=== PATIENT | male | born 1975 | race Caucasian/White ===

== ENCOUNTER 2019-07-14 07:42 | Observation (INO) ==
--- NOTE | 2019-07-14 08:01 | Emergency Department Note ---
ED Disposition Clinical Impression: Alcohol abuse, Depressive disorder Alcohol intoxication Qualifiers: Complication of substance-induced condition: uncomplicated Qualified Code(s): F10.920 - Alcohol use, unspecified with intoxication, uncomplicated Disposition: Admitted as Observation Condition on Discharge: Fair - Critical Care Critical Care Time: No Attestation: On 07/14/19, the high probability of a clinically significant, sudden or life threatening deterioration of the following system(s) required my full and direct attention, intervention and personal management. The time I documented below is in addition to time spent performing reported procedures but includes the following listed in this critical care notation. Medical Decision Making - Avery Inquiry Pt receiving controlled substance: No Vital Signs: 07/14/19 07:42 07/14/19 07:58 07/14/19 08:05 Temperature 97.8 F Temperature Source Oral Pulse Rate Pulse Rate [Apical] 105 H Pulse Rate [Left Radial] 104 H 104 H Respiratory Rate 16 Blood Pressure Blood Pressure [Left Arm] 98/64 L 99/70 L Blood Pressure [Right Arm] 107/66 L Blood Pressure Mean [Left Arm] 75 79 Blood Pressure Mean [Right Arm] 79 Blood Pressure Source Blood Pressure Source [Left Arm] Automatic Cuff Automatic Cuff Blood Pressure Source [Right Arm] Automatic Cuff Blood Pressure Position Blood Pressure Position [Left Arm] Sitting Sitting Blood Pressure Position [Right Arm] Sitting 02 Sat by Pulse Oximetry 96 95 96 Oxygen Delivery Method Room Air Room Air Room Air 07/14/19 08:42 07/14/19 08:58 07/14/19 13:13 Temperature Temperature Source Pulse Rate Pulse Rate [Apical] Pulse Rate [Left Radial] 86 98 H 80 Respiratory Rate 16 18 Blood Pressure Blood Pressure [Left Arm] 104/66 L 90/60 L 103/67 L Blood Pressure [Right Arm] Blood Pressure Mean [Left Arm] 78 70 79 Blood Pressure Mean [Right Arm] Blood Pressure Source Blood Pressure Source [Left Arm] Automatic Cuff Automatic Cuff Automatic Cuff Blood Pressure Source [Right Arm] Blood Pressure Position Blood Pressure Position [Left Arm] Sitting Sitting Sitting Blood Pressure Position [Right Arm] 02 Sat by Pulse Oximetry 98 97 94 L Oxygen Delivery Method Room Air Room Air Room Air 07/14/19 14:34 07/14/19 15:30 07/14/19 16:35 Temperature Temperature Source Pulse Rate Pulse Rate [Apical] 83 Pulse Rate [Left Radial] 75 77 Respiratory Rate 20 17 16 Blood Pressure Blood Pressure [Left Arm] 92/54 L 108/72 L 103/60 L Blood Pressure [Right Arm] Blood Pressure Mean [Left Arm] 66 84 74 Blood Pressure Mean [Right Arm] Blood Pressure Source Blood Pressure Source [Left Arm] Automatic Cuff Automatic Cuff Automatic Cuff Blood Pressure Source [Right Arm] Blood Pressure Position Blood Pressure Position [Left Arm] Right Lateral Supine Supine Blood Pressure Position [Right Arm] 02 Sat by Pulse Oximetry 98 95 96 Oxygen Delivery Method Room Air Room Air Room Air 07/14/19 17:03 07/14/19 17:30 07/14/19 18:07 Temperature Temperature Source Pulse Rate Pulse Rate [Apical] 99 H Pulse Rate [Left Radial] 89 75 71 Respiratory Rate 18 16 16 Blood Pressure Blood Pressure [Left Arm] 103/60 L 117/81 117/81 Blood Pressure [Right Arm] Blood Pressure Mean [Left Arm] 74 93 93 Blood Pressure Mean [Right Arm] Blood Pressure Source Blood Pressure Source [Left Arm] Automatic Cuff Automatic Cuff Automatic Cuff Blood Pressure Source [Right Arm] Blood Pressure Position Blood Pressure Position [Left Arm] Sitting Sitting Supine Blood Pressure Position [Right Arm] 02 Sat by Pulse Oximetry 97 99 99 Oxygen Delivery Method Room Air Room Air Room Air 07/14/19 18:30 07/14/19 19:00 07/14/19 19:21 Temperature 98.5 F Temperature Source Oral Pulse Rate 64 Pulse Rate [Apical] Pulse Rate [Left Radial] 69 74 Respiratory Rate 16 16 18 Blood Pressure 126/89 Blood Pressure [Left Arm] 126/89 126/89 Blood Pressure [Right Arm] Blood Pressure Mean [Left Arm] 101 101 Blood Pressure Mean [Right Arm] Blood Pressure Source Automatic Cuff Blood Pressure Source [Left Arm] Automatic Cuff Automatic Cuff Blood Pressure Source [Right Arm] Blood Pressure Position Sitting Blood Pressure Position [Left Arm] Supine Sitting Blood Pressure Position [Right Arm] 02 Sat by Pulse Oximetry 99 100 Oxygen Delivery Method Room Air Room Air Room Air - Lab Data Lab Results 07/14/19 07:40: WBC 7.2, RBC 5.12, Hgb 14.3, Hct 44.9, MCV 87.6, MCH 28.0, MCHC 31.9, RDW 16.2, Plt Count 265, MPV 7.3 L, Neut % (Auto) 24.9 L, Lymph % (Auto) 67.7 H, [place] % (Auto) 3.7, Eos % (Auto) 2.9, Baso % (Auto) 0.7, Neut # (Auto) 1. 8, Lymph # (Auto) 4.9 H, [place] # (Auto) 0.3, Eos # (Auto) 0.2, Baso # (Auto) 0.1, Total Counted 100, Neutrophils % (Manual) 26 L, Lymphocytes % (Manual) 72 H, Monocytes % (Manual) 2, Platelet Estimate Normal 07/14/19 07:40: Sodium 143, Potassium 3.6, Chloride 102, Carbon Dioxide 29, [place] 15.6 H, BUN 10, Creatinine 0.66 L, Estimated Creat Clear 181, Estimated GFR 131, Est GFR ( Amer) 158, Glucose 195 H, Calcium 8.6, Total Bilirubin 0.2, AST 85 H, ALT 96 H, Alkaline Phosphatase 85, Total Protein 8.0, Albumin 4.0, Globulin 4.0 H, Albumin/Globulin Ratio 1.0 L, Salicylates 3.3, Acetaminophen 0 L 07/14/19 07:40: Plasma/Serum Alcohol 410 H* 07/14/19 07:40: Lipase 110 07/14/19 08:08: POC Glucose 216 H 07/14/19 08:40: Urine Color Yellow, Urine Appearance Clear, Urine pH 6.0, Ur Specific Christine 1.015, Urine Protein Negative, Urine Glucose (UA) Trace, Urine Ketones Negative, Urine Blood Negative, Urine Nitrate Negative, Urine Bilirubin Negative, Urine Urobilinogen 0.2, Ur Leukocyte Esterase Negative, Urine RBC Occasional, Urine WBC 3-5, Ur Squamous Epith Cells Occasional, Urine Bacteria Trace 07/14/19 08:40: Urine Opiates Screen Negative, Urine Methadone Screen Negative, Ur Barbituates Screen Negative, Ur Phencyclidine Scrn Negative, Ur Amphetamines Screen Negative, U Benzodiazepines Scrn Positive H, Urine Cocaine Screen Negative, U Marijuana (THC) Screen Negative 07/14/19 13:08: Plasma/Serum Alcohol 254 H 07/14/19 16:32: POC Glucose 126 H 07/14/19 17:52: Plasma/Serum Alcohol 142 H 07/14/19 17:57: Phosphorus 4.2, Magnesium 2.3 H Result diagrams: 07/14/19 07:40 07/14/19 07:40 Orders (Tests/Meds): ED MEDICATIONS Generic Name Dose Route Start Last Admin Trade Name Usha PRN Reason Stop Dose Admin Folic Acid 1 mg 07/15/19 09:00 Folic Acid 1mg Tablet PO 08/14/19 08:59 DAILY SAM Haloperidol 5 mg 07/14/19 19:48 Haldol 5mg Tablet PO 08/13/19 19:47 Q1HP PRN Agitation Sodium Chloride 1,000 mls @ 50 mls/hr 07/14/19 19:48 07/14/19 19:54 Sod Chlor 0.9% 1000ml Bag IV 08/13/19 19:47 50 mls/hr .Q20H SAM Administration Insulin Human Lispro 0 unit 07/14/19 21:00 Humalog 100 Units/Ml 3ml Vial ([facility]) SQ 08/13/19 20:59 ACHS SAM Protocol Lorazepam 1 mg 07/14/19 20:16 Ativan 2mg/Ml Vial IV 08/13/19 20:15 Q2HP PRN AGITATION Multivitamins 1 each 07/15/19 17:00 Multi-Vitamin Plain PO 08/14/19 16:59 1700 SAM Oxazepam 30 mg 07/14/19 20:00 Serax 15mg Capsule PO 07/16/19 14:01 Q6H SAM Sodium Chloride 10 ml 07/14/19 19:48 Saline Flush 10ml Syringe IV 08/13/19 09:22 NEEDED PRN Maintain IV Site Sodium Chloride 8 ml 07/14/19 19:48 Sodium Chloride 0.9% 10ml Vial IV 08/13/19 09:22 NEEDED PRN dilute pepcid Thiamine HCl 100 mg 07/15/19 09:00 Vitamin B-1 100mg Tablet PO 07/17/19 09:01 DAILY SAM Discontinued Medications Generic Name Dose Route Start Last Admin Trade Name Usha PRN Reason Stop Dose Admin Belladonna Alkaloids 60 ml 07/14/19 09:23 07/14/19 09:26 Gi Cocktail 60ml Udc PO 07/14/19 09:24 60 ml ONCE ONE Administration Famotidine 20 mg 07/14/19 09:23 07/14/19 09:26 Pepcid 20mg/2ml Vial IV 07/14/19 09:24 20 mg ONCE ONE Administration Folic Acid 1 mg 07/14/19 09:24 07/14/19 09:46 Folic Acid 1mg Tablet PO 07/14/19 09:25 1 mg ONCE ONE Administration Multivitamins 10 ml/ Thiamine 1,015 mls @ 150 mls/hr 07/14/19 09:30 07/14/19 09:46 HCl 100 mg/ Magnesium Sulfate IV 07/14/19 16:15 150 mls/hr 2 gm/ Lactated Ringer's .Q6H46M SAM Administration Ioversol 75 ml 07/14/19 10:10 07/14/19 10:11 Rad-Optiray 350 100ml Vial IV 07/14/19 10:11 75 ml ONCE ONE Administration Protocol Ketorolac Tromethamine 30 mg 07/14/19 08:55 07/14/19 09:06 Toradol 30mg/Ml Vial IV 07/14/19 08:56 30 mg ONCE ONE Administration Sodium Chloride 1,000 ml 07/14/19 08:09 07/14/19 08:15 Sod Chlor 0.9% 1000ml Bag IV 07/14/19 08:10 1,000 ml BOLUS ONE Administration Sodium Chloride 10 ml 07/14/19 09:23 Saline Flush 10ml Syringe IV 08/13/19 09:22 NEEDED PRN Maintain IV Site Sodium Chloride 8 ml 07/14/19 09:23 Sodium Chloride 0.9% 10ml Vial IV 08/13/19 09:22 NEEDED PRN dilute pepcid Sodium Chloride 10 ml 07/14/19 10:10 07/14/19 10:11 Rad-Saline Flush 10ml Syringe IV 07/14/19 10:11 10 ml ONCE ONE Administration ORDERS Category Date Time Status Activated Partial Thrombo Time Routine Lab 07/14/19 17:40 Received Complete Blood Count Auto Diff AMLAB Lab 07/15/19 06:00 Ordered Prothrombin Time INR Routine Lab 07/14/19 17:40 Received - CT Data CT Scan: Abdomen, Pelvis Time Received: 10:[address] Reviewed: Yes: I have viewed the radiologist's interpretation Findings Narrative: FINDINGS: Lung bases are clear. Small area of decreased attenuation is present in the left hepatic lobe at the fissure for the ligamentum teres and may be due to focal fatty infiltration. There is mild prominence of the intrahepatic biliary radicles. The gallbladder is not distended. There is mild generalized motion artifact which does decrease sensitivity of the exam. The spleen and adrenal glands are unremarkable. There is diffuse coarse calcification involving the body and head of the pancreas consistent with chronic pancreatitis. The common bile duct is slightly prominent at 12 mm. A definite common duct stone is not identified however, there is a moderate degree of motion which obscures fine detail and there are multiple calcifications in the head of the pancreas which could mimic or obscure a common duct stone. If there is clinical suspicion for biliary obstruction then, MRCP may be of further value if the patient can't adequately breath hold. The kidneys show no acute finding. No intestinal obstruction or free air is evident. There are multiple unopacified bowel loops in the abdomen and pelvis which could obscure or mimic pathology. Prostate is slightly enlarged at 5 cm. There is a moderate amount of retained colonic feces. No evidence of diverticulitis or appendicitis. No intestinal obstruction or free air. IMPRESSION: 1. Chronic pancreatitis 2. Prominence of the intra and extrahepatic biliary tree. No obvious common duct stone however, there are limitations to evaluation of the common bile duct. MRCP may be of further value if clinically warranted 3. Constipation Dictated by: Filiberto Gutierrez MD 07/14/2019 10:41 Electronically signed by Filiberto Gutierrez MD in [place] 07/14/2019 10:41 - ECG Data Tracing #1 EKG interpreted by Maximus Hu MD: Rhythm: sinus tachycardia Rate: 108 [place]: normal Ectopy: none Conduction: normal ST Segment Changes: none T Wave Changes: none Q Waves: none No evidence of acute ischemia or injury Baseline artifact present, but I consider the EKG adequate for accurate interpretation. Medical Decision Narrative: 8:55 AM: Nurse reports patient states he suffers from chronic pancreatitis. States he normally just drinks a shot of vodka to take care of it, but if he does not get something for it soon, he will start pulling stuff out. Toradol ordered. Lipase ordered. 9:10 AM: Patient states Toradol did not help, asked for something else for pain. I declined to give him any opiates. Patient informed that he had said that he took 10 Percocets about 5 hours ago. He then states that he did not take them. 9:25 AM: Sports Medicine Coordinator states patient is requesting Pepcid or something else for his stomach. Pepcid and GI cocktail ordered. Nurse reports that when she administered these, patient states that "that doctor's out of his fucking mind. Pancreatitis is an inflammation of the pancreas." 9:50 AM: Spoke with patient about test results. Advised him that acetaminophen and opiates were negative. He also does not have pupillary constriction or any other signs that would indicate opiate ingestion. He now states that he does not think that he took any Percocet. He states "I do not know what I did last night". Patient complains of severe epigastric pain. CT scan ordered. [facility] was contacted and they report that for the patient to be sent there on a 72-hour hold, alcohol level had to be below 80 mg/dL. Patient was observed in the emergency department, serial alcohol levels have been followed. Meg Caputo was contacted for psych evaluation. 6:13 PM: Meg Caputo did not evaluate the patient in the ED. The patient is awake and alert and appears sober. Speech is clear. He has eaten a meal. He does not remember presenting here this morning. When presented with the fact that he was reporting suicidal ideation he now states that he does not think he is suicidal, he says he just had a bad day. Has some family problems. Admits to being a daily drinker. When asked whether he has been through detox before, he says that he just got out of detox yesterday from [facility]. I reviewed the records from [facility]. He was admitted there from 07/09/2019 through 07/12/2019. He presented with bilateral loss of vision and alcohol intoxication. He had an extensive evaluation from ophthalmology and neurology. It was felt that his bilateral vision loss was possibly due to drinking homemade moonshine. He was treated for sever alcohol withdrawal. discharged with referrals for f/u. 7:00 PM: The patient says that he does not feel suicidal and would like to go home. He says he does not think he is at risk of DTs because he only drank heavily one day after being detoxed. However, he has no way to get home. He has no shoes. He has no friends who can pick them up. Our nursing staff attempted to find him a ride home without success. 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 Patient says that he prefers to stay here overnight. Wants to see Meg Harshal tomorrow, if possible. I am concerned that he may go into alcohol withdrawal. I discussed the case with Dr. Tong who agrees to admit him overnight observation on alcohol withdrawal protocol. General Adult HPI - General Stated complaint: suicidal ideation Time Seen by Provider: 07/14/19 08:01 - History of Present Illness HPI narrative: Not a cooperative historian. Brought in by ambulance. States he does not know who called 911, says "I just took a bunch of pills and drank some booze and the next thing I know I am here". Report is that he actually called 911. When I mention this to him he says "that is funny". He says that he took Percocet, p erhaps 10, ate mushrooms, snorted a half of a Suboxone and drank a few shots of alcohol at about 4 AM. He says he wants to and was trying to kill himself. Denies previous suicide attempts or psychiatric admissions. Does not currently see a psychiatrist or therapist. States he "just does not want to be here anymore". States "my job here is done". - Related Data Home Medications Medication Instructions Recorded Confirmed Insulin Glargine,Hum.[email or web address].anlog 22 unit SQ DAILY 07/08/19 07/14/19 [Adama Betancourt [id number]] Allergies Allergy/AdvReac Type Severity Reaction Status Date / Time No Known Allergies Allergy Verified 07/08/19 00:25 [facility] History - Hepatitis A Screen Attestation statement:: This patient has been screened for Hepatitis A risk factors. I have reviewed the patient's past medical history: Yes - Social History Smoking Status: Current every day smoker Tobacco Type: cigarettes # Packs/Day (cigarettes): 1 Alcohol Intake: current Alcohol Intake Frequency:: holidays/special occasions only Occupational Status: employed ROS Obtained: Yes unobtainable due to mental status Physical Exam - General General appearance: alert, in no apparent distress Comment: talks with eyes closed, but speech clear. - Head Head exam: atraumatic, normocephalic - Eye Eye exam: Present: normal appearance, PERRL, EOMI, other (pupils 5 mm) - ENT ENT exam: Present: normal exam, mucous membranes moist - Neck Neck exam: Present: normal inspection, trachea midline - Chest Chest inspection: Present: normal inspection, symmetric chest wall rise - Respiratory Respiratory exam: Present: normal lung sounds bilaterally. Absent: respiratory distress - Cardiovascular Cardiovascular exam: Present: regular rate, normal rhythm, normal heart sounds - Abdominal Exam Abdominal exam: Present: soft, normal bowel sounds. Absent: distention, tenderness - Extremities Exam Extremities exam: Present: normal inspection, full ROM. Absent: tenderness - Neurological Exam Neurological exam: Present: alert, oriented X3, CN II-XII intact. Absent: motor sensory deficit - Psychiatric Psychiatric exam: Present: flat affect - Skin Skin exam: Present: warm, dry
[2019-07-14 08:24] LABS: Basophils # 0.1 K/mm3 (0-0.2); Basophils % 0.7 % (0.1-2.0); Eosinophils # 0.2 K/mm3 (0.0-0.4); Eosinophils % 2.9 % (0.1-12.0); Hematocrit 44.9 % (42.0-52.0); Hemoglobin 14.3 g/dL (14.1-18.0); Lymphocytes # 4.9 K/mm3 (0.7-4.5); Lymphocytes % 67.7 % (10-50); Mean Corpuscular HGB Conc 31.9 g/dL (31.8-35.4); Mean Corpuscular Volume 87.6 fl (80-94); Mean Platelet Volume 7.3 fl (7.4-10.4); Monocytes # 0.3 K/mm3 (0.1-1.0); Monocytes % 3.7 % (1.7-9.3); Neutrophils # 1.8 K/mm3 (1.8-7.8); Neutrophils % 24.9 % (37.0-80.0); Platelet Count 265 K/mm3 (142-424); Red Blood Count 5.12 M/mm3 (4.60-6.20); Red Cell Distribution Width 16.2 % (11.5-17.5); White Blood Count 7.2 K/mm3 (4.8-10.8)
[2019-07-14 08:32] LABS: Anion Gap 15.6 mEq/L (5-15); Bilirubin,Total 0.2 mg/dL (0.2-1.0); Calcium 8.6 mg/dL (8.5-10.1); Salicylate 3.3 mg/dL (2.8-20.0)
[2019-07-14 08:44] LABS: Microscopic, Urine URINE MICROSCOPIC (MICROSCOPIC)
[2019-07-14 08:47] LABS: Appearance,Urine CLEAR (Clear); Bilirubin,Urine Negative (Negative); Blood, Urine Negative (Negative); Color,Urine YELLOW (Yellow); Glucose,Urine (UA) TRACE (Negative); Ketones,Urine Negative (Negative); Leukocyte Esterase,Urine Negative (Negative); Protein,Urine Negative (Negative); Specific Gravity, Urine 1.015 (1.005-1.030); Urobilinogen,Urine 0.2 EU/dl (0.2)
[2019-07-14 08:54] LABS: Amphetamine/Metha Screen,Urine Negative ng/mL (<1000); Barbiturates Screen,Urine Negative ng/mL (<200); Benzodiazepines Screen,Urine Positive ng/mL (<200); Cannabinoid Screen,Urine Negative ng/mL (<50); Cocaine Screen,Urine Negative ng/mL (<300); Methadone Screen,Urine Negative ng/mL (<300); Opiate Screen,Urine Negative ng/mL (<300); Phencyclidine Screen,Urine Negative ng/mL (<25)
[2019-07-14 08:55] LABS: Lymphocytes % 72 % (10-50); Monocytes % 2 % (2-9); Neutrophils % 26 % (42-76); Total Cells Counted 100
[2019-07-14 09:15] LABS: Bacteria,Urine Trace /lpf; RBC,Urine Occasional #/hpf (0-3); Squamous Epithelial Cell,Urine Occasional #/hpf (0-5)
[2019-07-14 20:07] LABS: Phosphorous 4.2 mg/dL (2.4-4.9)
[2019-07-14 20:44] LABS: INR 0.97 (0.9-1.1); Prothrombin Time 10.1 seconds (9.4-11.8)
[2019-07-15 06:22] LABS: Basophils % 0.5 % (0.1-2.0); Eosinophils # 0.1 K/mm3 (0.0-0.4); Eosinophils % 1.1 % (0.1-12.0); Hematocrit 40.5 % (42.0-52.0); Hemoglobin 12.9 g/dL (14.1-18.0); Lymphocytes # 2.9 K/mm3 (0.7-4.5); Lymphocytes % 42.8 % (10-50); Mean Corpuscular HGB Conc 31.9 g/dL (31.8-35.4); Mean Corpuscular Volume 88.4 fl (80-94); Mean Platelet Volume 7.4 fl (7.4-10.4); Monocytes # 0.4 K/mm3 (0.1-1.0); Monocytes % 5.4 % (1.7-9.3); Neutrophils # 3.4 K/mm3 (1.8-7.8); Neutrophils % 50.3 % (37.0-80.0); Platelet Count 213 K/mm3 (142-424); Red Blood Count 4.58 M/mm3 (4.60-6.20); Red Cell Distribution Width 15.8 % (11.5-17.5); White Blood Count 6.7 K/mm3 (4.8-10.8)
--- NOTE | 2019-07-15 07:34 | Pharmacy Consult Notes ---
[facility] Pharmacy VTE Monitoring - Patient Demographics Admission date: 07/15/19 Report Date: 07/15/19 Time: 07:34 Allergies/Adverse Reactions: Patient Allergies No Known Allergies Allergy (Verified 07/14/19 20:37) Height: 1.88 m Weight: 87.77 kg Patient Problems: Current Active Problems Alcohol intoxication (Acute) Alcohol abuse (Acute) Depressive disorder (Acute) - VTE Risk Labs: VTE Related Lab Results Hgb 12.9 g/dL (14.1-18.0) L 07/15/19 05:40 Hct 40.5 % (42.0-52.0) L 07/15/19 05:40 Plt Count 213 K/mm3 (142-424) 07/15/19 05:40 PT 10.1 seconds (9.4-11.8) 07/14/19 17:40 INR 0.97 (0.9-1.1) 07/14/19 17:40 APTT 26.8 seconds (23.6-34.0) 07/14/19 17:40 BUN 10 mg/dL (7-18) 07/14/19 07:40 Creatinine 0.66 mg/dL (0.70-1.30) L 07/14/19 07:40 Estimated Creat Clear 181 mL/min (50-200) 07/14/19 07:40 Was VTE Risk Assessment Performed: Yes VTE Score: 1 VTE Risk Level: Very Low Risk Clinical Trial Participant: No - Prophylaxis VTE Prophylaxis Ordered?: Yes Types of VTE Prophylaxis: TEDS Knee High
--- NOTE | 2019-07-15 11:07 | H&P/Discharge Summary ---
General - General Admission date:: 07/14/19 Discharge date: 07/15/19 *Admission Date: 07/15/19 *Chief complaint: alcohol intoxication *History of present illness: Mr. Albright is a 44-year-old male with a 20-year history of alcohol and substance abuse. He states he has been to rehab many times but always relapses. He was just admitted at for 3 days over this past weekend for alcohol withdrawal symptoms. He states he was released from on 07/13/2019 and felt fine. On 07/14/2019 he and his friend began partying and he states he drank for approximately 18 hours straight. He is unsure how much he drank. He does not remember most of yesterday but states he was told he became suicidal and threatened to run and jump in front of a car. He was therefore transported to the hospital by ambulance. His serum alcohol level was 410 and his toxicology screen was positive for benzodiazepines. He was admitted and placed on alcohol withdrawal protocol and hydration. He states he normally drinks approximately 1 /5 of vodka daily and is functional when drinking this much. This a.m. he is feeling much better. He states he has no signs of withdrawal and would like to go home. His alcohol level did decrease last night down to 142. [facility] History I have reviewed the patient's past medical history: Yes Medical History: Reports:: Diabetes Mellitus Type 1 (Type 1.5), Diabetes Mellitus Type 2 Denies:: Cancer, MRSA *Have you ever received a pneumonia vaccine?: No *Have you received a flu vaccine this season?: No Other Medical History: Reports: Other (chronic pancreatitis) Other Surgeries: Yes: Colonoscopy Amputation: No Fractures: No - *Social History Educational Level: Completed College Smoking Status: Current every day smoker Tobacco Type: cigarettes # Packs/Day (cigarettes): 1 Alcohol Intake: current Alcohol Intake Frequency:: 3 or more drinks per day Substance Use Type: opiates, other Last Used Substance: days (ago) *Occupational Status:: employed *Travel in the last 8 weeks: None - Psychiatric History Expresses thoughts of harming self/others: None Suicide Plan Description: No Plan Pschychiatric History:: Reports:: Suicide Attempt Family Hx:: Substance abuse Review of Systems - Constitutional Denies chills, Denies fever(s), Denies weakness - Eyes Denies blurry vision, Denies double vision - ENT Denies nasal congestion, Denies sore throat - *Cardiovascular Denies chest pain, Denies shortness of breath, Denies rapid, pounding, or irregular heartbeat - *Respiratory Denies cough, Denies shortness of breath - *Gastrointestinal Reports abdominal pain (epigastric), Denies loose stools, Denies nausea, Denies vomiting - *Genitourinary Denies difficulty urinating, Denies painful urination - *Musculoskeletal Denies joint pain - *Neurologic Denies headache(s), Denies dizziness, Denies weakness Exam Vital signs and Labs for Last 24 Hours: Temp Pulse Resp BP Pulse Ox 99.0 F 72 18 119/64 99 07/15/19 08:00 07/15/19 08:00 07/15/19 08:00 07/15/19 08:00 07/15/19 08:00 Laboratory Results - last 24 hr 07/14/19 13:08: Plasma/Serum Alcohol 254 H 07/14/19 16:32: POC Glucose 126 H 07/14/19 17:40: APTT 26.8 07/14/19 17:40: PT 10.1, INR 0.97 07/14/19 17:52: Plasma/Serum Alcohol 142 H 07/14/19 17:57: Phosphorus 4.2, Magnesium 2.3 H 07/14/19 20:48: POC Glucose 189 H 07/14/19 22:41: POC Glucose 53 L 07/14/19 22:53: POC Glucose 68 L 07/14/19 23:01: POC Glucose 88 07/14/19 23:16: POC Glucose 120 H 07/15/19 05:40: WBC 6.7, RBC 4.58 L, Hgb 12.9 L, Hct 40.5 L, MCV 88.4, MCH 28.2, MCHC 31.9, RDW 15.8, Plt Count 213, MPV 7.4, Neut % (Auto) 50.3, Lymph % (Auto) 42.8, [place] % (Auto) 5.4, Eos % (Auto) 1.1, Baso % (Auto) 0.5, Neut # (Auto) 3.4, Lymph # (Auto) 2.9, [place] # (Auto) 0.4, Eos # (Auto) 0.1, Baso # (Auto) 0.0 07/15/19 05:57: POC Glucose 246 H I & O for Last 24 hours: Intake & Output 07/12/19 07/13/19 07/14/19 07/15/19 11:59 11:59 11:59 11:59 Intake Total 3814 / 3814 Balance 3814 / 3814 Weight 200 lb 193 lb 8 oz - Constitutional no acute distress - *Routine HEENT Exam Head: Present: normocephalic Eye: Present: EOMI, PERRL ENT: Present: mucous membranes moist - *Routine Neck Exam Present: supple. Absent: carotid bruit, lymphadenopathy - *Routine Respiratory Exam Present: CTA bilaterally - *Routine Cardiovascular Exam Present: RRR - *Routine Abdominal Exam Present: soft, normoactive bowel sounds. Absent: tenderness - *Routine Extremities Exam Absent: cyanosis, clubbing, edema - *Routine Skin Exam Present: warm. Absent: rash - *Routine Neurological Exam Present: alert, oriented X3 - Detailed Eye Exam Eyelids: Left normal inspection Hospital Course Hospital Course: The patient was admitted and started on alcohol withdrawal protocol and IV fluids. He felt much better by the next day with no withdrawal symptoms and was anxious to go home. His alcohol level decreased. He was stable to be discharge d home Results Labs on day of discharge: Labs from last 24 hours 07/15/19 07/15/19 07/14/19 05:57 05:40 23:16 WBC 6.7 RBC 4.58 L Hgb 12.9 L Hct 40.5 L MCV 88.4 MCH 28.2 MCHC 31.9 RDW 15.8 Plt Count 213 MPV 7.4 Neut % (Auto) 50.3 Lymph % (Auto) 42.8 [place] % (Auto) 5.4 Eos % (Auto) 1.1 Baso % (Auto) 0.5 Neut # (Auto) 3.4 Lymph # (Auto) 2.9 [place] # (Auto) 0.4 Eos # (Auto) 0.1 Baso # (Auto) 0.0 PT INR APTT POC Glucose 246 H 120 H Phosphorus Magnesium Plasma/Serum Alcohol 07/14/19 07/14/19 07/14/19 23:01 22:53 22:41 WBC RBC Hgb Hct MCV MCH MCHC RDW Plt Count MPV Neut % (Auto) Lymph % (Auto) [place] % (Auto) Eos % (Auto) Baso % (Auto) Neut # (Auto) Lymph # (Auto) [place] # (Auto) Eos # (Auto) Baso # (Auto) PT INR APTT POC Glucose 88 68 L 53 L Phosphorus Magnesium Plasma/Serum Alcohol 07/14/19 07/14/19 07/14/19 20:48 17:57 17:52 WBC RBC Hgb Hct MCV MCH MCHC RDW Plt Count MPV Neut % (Auto) Lymph % (Auto) [place] % (Auto) Eos % (Auto) Baso % (Auto) Neut # (Auto) Lymph # (Auto) [place] # (Auto) Eos # (Auto) Baso # (Auto) PT INR APTT POC Glucose 189 H Phosphorus 4.2 Magnesium 2.3 H Plasma/Serum Alcohol 142 H 07/14/19 07/14/19 07/14/19 17:40 17:40 16:32 WBC RBC Hgb Hct MCV MCH MCHC RDW Plt Count MPV Neut % (Auto) Lymph % (Auto) [place] % (Auto) Eos % (Auto) Baso % (Auto) Neut # (Auto) Lymph # (Auto) [place] # (Auto) Eos # (Auto) Baso # (Auto) PT 10.1 INR 0.97 APTT 26.8 POC Glucose 126 H Phosphorus Magnesium Plasma/Serum Alcohol 07/14/19 13:08 WBC RBC Hgb Hct MCV MCH MCHC RDW Plt Count MPV Neut % (Auto) Lymph % (Auto) [place] % (Auto) Eos % (Auto) Baso % (Auto) Neut # (Auto) Lymph # (Auto) [place] # (Auto) Eos # (Auto) Baso # (Auto) PT INR APTT POC Glucose Phosphorus Magnesium Plasma/Serum Alcohol 254 H DS: Diagnosis - Discharge Diagnosis (1) Alcohol abuse Status: Acute (2) Alcohol intoxication Status: Acute (3) Depressive disorder Status: Chronic (4) Diabetes mellitus Status: Chronic Discharge Plan - Patient Discharge Instructions ACTIVITY: Continue current activity DIET: continue same diet Patient Instructions: Blood Alcohol Level, Depression, Alcohol Use Disorder, DI for Depression -- Adult, DI for Alcohol Abuse, Drug and Alcohol Withdrawal, DI for Drug or Alcohol Withdrawal - Follow up Plan Follow up with: Mine Tong MD [Staff Physician] - Unknown provider or service follow up:: 07/15/19 08:56 his PCP in 2-3 days 07/15/19 08:56 Disposition: Home, Self-Custodial Medications: Home Medications Medication Instructions Recorded Confirmed Type Insulin Glargine,Hum.rec.anlog 22 unit SQ DAILY 07/08/19 07/14/19 History [Basaglar Kwikpen U-100] Insulin Lispro [HumaLOG 100 0 unit SQ PC 07/14/19 07/15/19 History units/mL 3mL vial (SSI)] Lisinopril [Lisinopril 2.5mg Tab] 2.5 mg PO DAILY 07/14/19 07/14/19 History Buspirone HCl [Buspar 10mg 10 mg PO BID 07/15/19 07/15/19 History tablet] Folic Acid [Folic Acid 1mg tablet] 1 mg PO DAILY 07/15/19 07/15/19 History Thiamine HCl [B-1] 100 mcg PO DAILY 07/15/19 07/15/19 History Venlafaxine HCl [Venlafaxine HCl 150 mg PO DAILY 07/15/19 07/15/19 History ER] Prescriptions/Medication Reconciliation: Continued Insulin Glargine,Hum.rec.anlog [Basaglar Kwikpen U-100] 22 unit SQ DAILY Lisinopril [Lisinopril 2.5mg Tab] 2.5 mg PO DAILY Insulin Lispro [HumaLOG 100 units/mL 3mL vial (SSI)] 0 unit SQ PC Thiamine HCl [B-1] 100 mcg PO DAILY Folic Acid [Folic Acid 1mg tablet] 1 mg PO DAILY Buspirone HCl [Buspar 10mg tablet] 10 mg PO BID Venlafaxine HCl [Venlafaxine HCl ER] 150 mg PO DAILY - Problem Reconciliation Problems Reviewed?: Yes
--- NOTE | 2019-07-15 21:08 | Electrocardiograph Report ---
APPROVED REPORT Exam: Resting ECG HR:108 bpm ECG Measurements Heart Rate 108 AXES TN 168 P 59 QRSd 78 QRS 41 QT 326 T58 QTc 436 <Conclusion> Sinus tachycardia Otherwise normal ECG Electronically signed by : Leonardo Montanez, 07/15/2019 21:08:20
== END 2019-07-15 10:25 | disposition home or self-care (01) ==
LOC: ER 07:42 → 2ND 07:42
PROVIDERS: ADMIT Emergency Medicine; ATTEND Emergency Medicine
CPT/HCPCS: 36415; 74177; 80053; 80305; 80329; 81001; 82962; 83690; 83735; 84100; 85007; 85025; 85610; 85730; 93005; 96365; 96367; 96375; 99285; G0378; Q9967